=== PATIENT | female | born 1950 | race Caucasian/White ===

== ENCOUNTER 2018-04-21 15:48 | Emergency (ER) | payer MEDICAID, MEDICARE ==
[~2018-04-21] VITALS: Ht 167.6 cm; Wt 87.0 kg
[2018-04-21] MEDS ORDERED: SODIUM CHLORIDE FLUSH 10ML SYR IVF ONE (16:00)
[2018-04-21 16:22] VITALS: BP 97/58
[2018-04-21 16:24] LABS: BASOPHILS # (AUTO) 0.02 x10^3/uL (0-0.1); BASOPHILS % (AUTO) 0 % (0-1); EOSINOPHILS # (AUTO) 0.08 x10^3/uL (0-0.4); EOSINOPHILS % (AUTO) 1 % (1-7); LYMPHOCYTES # (AUTO) 1.08 x10^3/uL (1-3.4); LYMPHOCYTES % (AUTO) 10 % (22-44); MD NO; MEAN CORPUSCULAR HEMOGLOBIN 27.7 pg (27.0-34.8); MEAN CORPUSCULAR HGB CONC 33.5 g/dL (32.4-35.8); MEAN CORPUSCULAR VOLUME 82.7 fL (80-100); MEAN PLATELET VOLUME 8.8 fL (7.4-10.4); MONOCYTES # (AUTO) 0.56 x10^3/uL (0.2-0.8); MONOCYTES % (AUTO) 5 % (2-9); NEUTROPHILS # (AUTO) 9.42 x10^3/uL (1.8-6.8); NEUTROPHILS % (AUTO) 84 % (42-75); PLATELET COUNT 200 x10^3/uL (130-400); RED BLOOD COUNT 4.85 x10^6/uL (3.82-5.3); RED CELL DISTRIBUTION WIDTH 13.5 % (9.6-15.2)
[2018-04-21 16:29] LABS: ALBUMIN 3.3 g/dL (3.4-5.0); ANION GAP 12 mmol/L (5-15); CALCIUM 8.8 mg/dL (8.5-10.1); CHLORIDE 103 mmol/L (98-107); SALICYLATE LEVEL 3.2 mg/dL (2.8-20.0)
[2018-04-21] MEDS ORDERED: PLEASE ENTER HEIGHT AND WEIGHT MC SCH (16:30)
[2018-04-21] MEDS ORDERED: PLEASE ENTER ALLERGIES MC SCH (16:30)
[2018-04-21 16:31] LABS: ALANINE AMINOTRANSFERASE 34 U/L (12-78); ALKALINE PHOSPHATASE 182 U/L (45-117); CREATININE 1.19 mg/dL (0.55-1.02); TOTAL PROTEIN 7.6 g/dL (6.4-8.2)
[2018-04-21 16:41] LABS: ACETAMINOPHEN < 2 mcg/mL (10-30)
[2018-04-21] MEDS ORDERED: NALOXONE 0.4 MG/ML, 1ML ONE (16:48)
[2018-04-21] MEDS ORDERED: NALOXONE 0.4 MG/ML, 1ML IVPush ONE (17:00)
== END 2018-04-21 17:15 | disposition left against medical advice (07) ==
LOC: ED 17:09
DX: R41.82 Altered mental status, unspecified (principal); R53.83 Other fatigue
CPT/HCPCS: 36415; 70450; 71045; 80053; 80307; 80329; 82140; 85025; 93005; 96374; 99285; J2310; G0480

== ENCOUNTER 2020-01-05 19:41 | Inpatient (IN) | payer MEDICARE, OTHER ==
[~2020-01-05] VITALS: Ht 162.6 cm; Wt 70.0 kg
--- NOTE | 2020-01-05 20:13 | NUR ---
SENDY LEWIS AT BEDSIDE EVALUATING PT
[2020-01-05 20:40] LABS: BASOPHILS # (AUTO) 0.02 x10^3/uL (0-0.1); BASOPHILS % (AUTO) 0 % (0-1); EOSINOPHILS % (AUTO) 2 % (1-7); LYMPHOCYTES # (AUTO) 1.13 x10^3/uL (1-3.4); LYMPHOCYTES % (AUTO) 18 % (22-44); MD NO; MEAN CORPUSCULAR HEMOGLOBIN 27.4 pg (27.0-34.8); MEAN CORPUSCULAR HGB CONC 32.5 g/dL (32.4-35.8); MEAN CORPUSCULAR VOLUME 84.3 fL (80-100); MEAN PLATELET VOLUME 9.3 fL (7.4-10.4); MONOCYTES # (AUTO) 0.34 x10^3/uL (0.2-0.8); MONOCYTES % (AUTO) 6 % (2-9); NEUTROPHILS # (AUTO) 4.67 x10^3/uL (1.8-6.8); NEUTROPHILS % (AUTO) 75 % (42-75); PLATELET COUNT 150 x10^3/uL (130-400); RED BLOOD COUNT 4.18 x10^6/uL (3.82-5.3); RED CELL DISTRIBUTION WIDTH 14.1 % (9.6-15.2)
[2020-01-05 20:50] LABS: ALBUMIN 3.3 g/dL (3.4-5.0); ANION GAP 5 mmol/L (5-15); CALCIUM 9.1 mg/dL (8.5-10.1); CHLORIDE 103 mmol/L (98-107); CREATININE 1.21 mg/dL (0.55-1.02)
[2020-01-05 21:28] LABS: HCT (SEDRATE) 35.2 % (34.6-47.8)
[2020-01-05] MEDS ORDERED: CEFAZOLIN PMX 1GM/50ML 50 ML IV ONE (21:30)
[2020-01-05] MEDS ORDERED: SODIUM CHLORIDE FLUSH 10ML SYR IVF ONE (21:30)
[2020-01-05] MEDS ORDERED: CEFAZOLIN 1,000 MG IV ONE (21:30)
[2020-01-05] MEDS ORDERED: CEFAZOLIN PMX 1GM/50ML 50 ML ONE (21:37)
--- NOTE | 2020-01-05 22:04 | NUR ---
DELAY IN IV ABX DUE TO DIFFICULTY OBTAINING IV ACCESS.
--- NOTE | 2020-01-05 22:19 | NUR ---
HOSPTIALIST AT BEDSIDE EVALUATING PT.
[2020-01-05] MEDS ORDERED: VANCOMYCIN PER PHARMACY MC PRN (22:30)
[2020-01-05] MEDS ORDERED: POLYETHYLENE GLYCOL 17 GM PACKET PO PRN (22:30)
[2020-01-05] MEDS ORDERED: SODIUM CHLORIDE FLUSH 10ML SYR IVF PRN (22:30)
[2020-01-05] MEDS ORDERED: ONDANSETRON ODT 4 MG PO PRN (22:30)
[2020-01-05] MEDS ORDERED: BISACODYL 10 MG SUPP PR PRN (22:30)
--- NOTE | 2020-01-05 22:39 | NUR ---
IV ESTABLISHED, IV ABX STARTED.
--- NOTE | 2020-01-05 22:51 | NUR ---
MED REC DONE. PT REPORTS "I TAKE A DIABETES MEDICATION BUT I DON'T KNOW WHAT IT'S CALLED"
--- NOTE | 2020-01-05 22:54 | NUR ---
REPORT TO MAUREEN GARRIDO
[2020-01-05] MEDS ORDERED: PLEASE ENTER WEIGHT MC SCH (23:30)
[2020-01-05] MEDS ORDERED: PHARMACOKINETIC MONITORING MC PRN (23:30)
[2020-01-05] MEDS: NICOTINE 7 MG/24 HR PATCH.TD24 TD SCH (23:44)
[2020-01-05] MEDS: HEPARIN 5,000 UNITS/ML, 1ML SQ SCH (23:44)
[2020-01-05] MEDS: SODIUM CHLORIDE FLUSH 10ML SYR IVF SCH (23:44)
[2020-01-05] MEDS: AMPICILLIN/SULBACTAM 3 GM in SODIUM CHLORIDE 0.9% 100 ML IV SCH (23:44)
[2020-01-06] MEDS ORDERED: VANCOMYCIN 1,500 MG in SODIUM CHLORIDE 0.9% 250 ML IV ONE
[2020-01-06 00:42] VITALS: BP 121/75
[2020-01-06] MEDS: ACETAMINOPHEN 325 MG TABLET PO PRN ×2 (02:58→19:11)
[2020-01-06] MEDS ORDERED: MORP1SYR2 PO (03:05)
[2020-01-06] MEDS ORDERED: MORPHINE SULFATE 4 MG/ML, 1ML ONE (05:06)
[2020-01-06] MEDS ORDERED: MORPHINE SULFATE 4 MG/ML, 1ML IVPush ONE (05:30)
[2020-01-06] MEDS: AMPICILLIN/SULBACTAM 3 GM in SODIUM CHLORIDE 0.9% 100 ML IV SCH ×3 (05:35→17:04)
[2020-01-06 05:57] LABS: ANION GAP 8 mmol/L (5-15); CALCIUM 8.7 mg/dL (8.5-10.1); CHLORIDE 104 mmol/L (98-107)
[2020-01-06 05:58] LABS: CREATININE 1.24 mg/dL (0.55-1.02)
[2020-01-06 06:03] LABS: BASOPHILS # (AUTO) 0.02 x10^3/uL (0-0.1); BASOPHILS % (AUTO) 0 % (0-1); EOSINOPHILS # (AUTO) 0.05 x10^3/uL (0-0.4); EOSINOPHILS % (AUTO) 1 % (1-7); LYMPHOCYTES # (AUTO) 0.85 x10^3/uL (1-3.4); LYMPHOCYTES % (AUTO) 18 % (22-44); MD NO; MEAN CORPUSCULAR HEMOGLOBIN 27.4 pg (27.0-34.8); MEAN CORPUSCULAR HGB CONC 32.4 g/dL (32.4-35.8); MEAN CORPUSCULAR VOLUME 84.6 fL (80-100); MEAN PLATELET VOLUME 9.9 fL (7.4-10.4); MONOCYTES # (AUTO) 0.25 x10^3/uL (0.2-0.8); MONOCYTES % (AUTO) 5 % (2-9); NEUTROPHILS % (AUTO) 75 % (42-75); PLATELET COUNT 149 x10^3/uL (130-400); RED BLOOD COUNT 4.17 x10^6/uL (3.82-5.3); RED CELL DISTRIBUTION WIDTH 13.9 % (9.6-15.2)
[2020-01-06 06:50] VITALS: BP 95/64
[2020-01-06] MEDS: HEPARIN 5,000 UNITS/ML, 1ML SQ SCH ×2 (08:14→16:12)
[2020-01-06] MEDS: SENNA/DOCUSATE TABLET PO SCH (08:14)
[2020-01-06] MEDS: SODIUM CHLORIDE FLUSH 10ML SYR IVF SCH ×2 (08:15→21:00)
[2020-01-06] MEDS ORDERED: GADOTERATE 7.5 MMOL/15 ML SYR ONE (09:03)
[2020-01-06] MEDS ORDERED: MORPHINE 30 MG PO (11:16)
[2020-01-06 12:58] LABS: AMPHETAMINE SCREEN, URINE Negative (Negative); BARBITURATE SCREEN, URINE Negative (Negative); BENZODIAZEPINE SCREEN, URINE Negative (Negative); CANNABINOID SCREEN, URINE Negative (Negative); COCAINE SCREEN, URINE Negative (Negative); METHADONE SCREEN, URINE Negative (Negative); OPIATE SCREEN, URINE Positive (Negative)
[2020-01-06 15:04] VITALS: BP 166/92
[2020-01-06] MEDS: OXYcodone IR 5MG TABLET PO PRN (15:17)
[2020-01-06 20:06] VITALS: BP 97/55
[2020-01-06] MEDS: NICOTINE 7 MG/24 HR PATCH.TD24 TD SCH (21:15)
[2020-01-07] MEDS ORDERED: VANCOMYCIN PMX 1GM/200ML 200 ML IVPB SCH
[2020-01-07] MEDS: AMPICILLIN/SULBACTAM 3 GM in SODIUM CHLORIDE 0.9% 100 ML IV SCH ×4 (00:08→23:04)
[2020-01-07] MEDS: OXYcodone IR 5MG TABLET PO PRN ×3 (01:30→17:19)
[2020-01-07 02:03] VITALS: BP 109/70
[2020-01-07 05:41] LABS: BASOPHILS # (AUTO) 0.02 x10^3/uL (0-0.1); BASOPHILS % (AUTO) 0 % (0-1); EOSINOPHILS # (AUTO) 0.07 x10^3/uL (0-0.4); EOSINOPHILS % (AUTO) 1 % (1-7); LYMPHOCYTES # (AUTO) 1.75 x10^3/uL (1-3.4); LYMPHOCYTES % (AUTO) 34 % (22-44); MD NO; MEAN CORPUSCULAR HEMOGLOBIN 27.5 pg (27.0-34.8); MEAN CORPUSCULAR HGB CONC 32.5 g/dL (32.4-35.8); MEAN CORPUSCULAR VOLUME 84.4 fL (80-100); MEAN PLATELET VOLUME 9.7 fL (7.4-10.4); MONOCYTES % (AUTO) 8 % (2-9); NEUTROPHILS % (AUTO) 56 % (42-75); PLATELET COUNT 167 x10^3/uL (130-400); RED BLOOD COUNT 4.28 x10^6/uL (3.82-5.3); RED CELL DISTRIBUTION WIDTH 14.3 % (9.6-15.2)
[2020-01-07 05:58] LABS: CHLORIDE 108 mmol/L (98-107)
[2020-01-07 06:03] LABS: ANION GAP 6 mmol/L (5-15); CALCIUM 8.8 mg/dL (8.5-10.1); CREATININE 0.96 mg/dL (0.55-1.02)
[2020-01-07 07:53] VITALS: BP 117/76
[2020-01-07] MEDS: HEPARIN 5,000 UNITS/ML, 1ML SQ SCH ×4 (07:56→23:04)
[2020-01-07] MEDS: SENNA/DOCUSATE TABLET PO SCH (08:03)
[2020-01-07] MEDS: SODIUM CHLORIDE FLUSH 10ML SYR IVF SCH ×2 (08:03→20:54)
[2020-01-07] MEDS ORDERED: CHLORHEXIDINE 15 ML UDC MM STA (13:12)
[2020-01-07] MEDS ORDERED: VANCOMYCIN 500 MG ONE (14:07)
[2020-01-07] MEDS ORDERED: BUPIVACAINE/PF 0.25% ONE (14:07)
[2020-01-07] MEDS ORDERED: LIDOCAINE 1%, 20ML ONE (14:07)
[2020-01-07] MEDS ORDERED: FENTANYL PF 250 MCG/5ML ONE (14:25)
[2020-01-07] MEDS ORDERED: HYDROmorphone 2 MG/ML, 1ML IVPush PRN (14:30)
[2020-01-07] MEDS ORDERED: OXYcodone 5 MG/5 ML ORAL.SOL UDC PO PRN (14:30)
[2020-01-07] MEDS ORDERED: LABETALOL 5MG/ML, 20ML IV PRN (14:30)
[2020-01-07] MEDS ORDERED: FENTANYL PF 100 MCG/2ML IV PRN (14:30)
[2020-01-07] MEDS ORDERED: HALOPERIDOL 5 MG/ML IV PRN (14:30)
[2020-01-07] MEDS ORDERED: PROMETHAZINE 25 MG/ML, 1ML IV PRN (14:30)
[2020-01-07] MEDS ORDERED: MEPERIDINE/PF 25MG/ML,1ML IVPush PRN (14:30)
[2020-01-07] MEDS ORDERED: hydrALAzine 20 MG/ML, 1ML IV PRN (14:30)
[2020-01-07] MEDS ORDERED: ROCURONIUM 10MG/ML,5ML ONE (15:10)
[2020-01-07] MEDS ORDERED: NEOSTIGMINE 1 MG/ML, 10ML ONE (15:10)
[2020-01-07] MEDS ORDERED: ONDANSETRON 2MG/ML, 2ML ONE (15:10)
[2020-01-07] MEDS ORDERED: GLYCOPYRROLATE 0.2MG/1ML, 5ML ONE (15:10)
[2020-01-07] MEDS ORDERED: DEXAMETHASONE 4 MG/ML, 1ML ONE (15:10)
[2020-01-07] MEDS ORDERED: CEFAZOLIN 1,000 MG ONE (15:10)
[2020-01-07] MEDS ORDERED: SUCCINYLCHOLINE 20 MG/ML, 10ML ONE (15:10)
[2020-01-07] MEDS ORDERED: PROPOFOL 10 MG/ML, 20ML ONE (15:10)
[2020-01-07] MEDS ORDERED: HYDROmorphone 1 MG/ML, 1ML INJ ONE (15:34)
[2020-01-07] MEDS ORDERED: FENTANYL PF 100 MCG/2ML ONE (15:34)
[2020-01-07 18:34] VITALS: BP 105/67
[2020-01-07] MEDS: VANCOMYCIN PMX 1GM/200ML 200 ML IVPB SCH (20:54)
[2020-01-07] MEDS: NICOTINE 7 MG/24 HR PATCH.TD24 TD SCH (20:55)
[2020-01-08] VITALS: BP 119/78
[2020-01-08] MEDS: ACETAMINOPHEN 325 MG TABLET PO PRN ×3 (01:33→15:00)
[2020-01-08] MEDS: OXYcodone IR 5MG TABLET PO PRN ×4 (01:34→23:00)
[2020-01-08 03:52] VITALS: BP 125/77
[2020-01-08] MEDS: AMPICILLIN/SULBACTAM 3 GM in SODIUM CHLORIDE 0.9% 100 ML IV SCH ×4 (04:54→22:33)
[2020-01-08 05:14] LABS: BASOPHILS # (AUTO) 0.02 x10^3/uL (0-0.1); BASOPHILS % (AUTO) 0 % (0-1); EOSINOPHILS % (AUTO) 0 % (1-7); LYMPHOCYTES # (AUTO) 0.79 x10^3/uL (1-3.4); LYMPHOCYTES % (AUTO) 11 % (22-44); MD NO; MEAN CORPUSCULAR HEMOGLOBIN 27.6 pg (27.0-34.8); MEAN CORPUSCULAR HGB CONC 32.8 g/dL (32.4-35.8); MEAN CORPUSCULAR VOLUME 84.2 fL (80-100); MEAN PLATELET VOLUME 9.6 fL (7.4-10.4); MONOCYTES % (AUTO) 4 % (2-9); NEUTROPHILS # (AUTO) 6.02 x10^3/uL (1.8-6.8); NEUTROPHILS % (AUTO) 84 % (42-75); PLATELET COUNT 155 x10^3/uL (130-400); RED BLOOD COUNT 3.85 x10^6/uL (3.82-5.3); RED CELL DISTRIBUTION WIDTH 14.1 % (9.6-15.2)
[2020-01-08 05:17] LABS: ANION GAP 4 mmol/L (5-15); CALCIUM 8.4 mg/dL (8.5-10.1); CHLORIDE 106 mmol/L (98-107)
[2020-01-08 05:18] LABS: CREATININE 0.87 mg/dL (0.55-1.02)
[2020-01-08] MEDS: HEPARIN 5,000 UNITS/ML, 1ML SQ SCH ×3 (07:38→23:56)
[2020-01-08 08:00] VITALS: BP 113/69
[2020-01-08] MEDS: SENNA/DOCUSATE TABLET PO SCH (10:00)
[2020-01-08] MEDS: SODIUM CHLORIDE FLUSH 10ML SYR IVF SCH ×2 (10:00→20:44)
[2020-01-08 13:06] VITALS: BP 112/56
[2020-01-08] MEDS: VANCOMYCIN PMX 1GM/200ML 200 ML IVPB SCH (15:00)
[2020-01-08 19:45] VITALS: BP 101/64
[2020-01-08] MEDS: NICOTINE 7 MG/24 HR PATCH.TD24 TD SCH (22:30)
[2020-01-09 02:19] VITALS: BP 89/57
[2020-01-09] MEDS: AMPICILLIN/SULBACTAM 3 GM in SODIUM CHLORIDE 0.9% 100 ML IV SCH ×2 (04:24→10:48)
[2020-01-09 04:44] LABS: BASOPHILS # (AUTO) 0.03 x10^3/uL (0-0.1); BASOPHILS % (AUTO) 1 % (0-1); EOSINOPHILS # (AUTO) 0.14 x10^3/uL (0-0.4); EOSINOPHILS % (AUTO) 3 % (1-7); LYMPHOCYTES % (AUTO) 44 % (22-44); MD NO; MEAN CORPUSCULAR HEMOGLOBIN 27.8 pg (27.0-34.8); MEAN CORPUSCULAR HGB CONC 32.6 g/dL (32.4-35.8); MEAN CORPUSCULAR VOLUME 85.1 fL (80-100); MEAN PLATELET VOLUME 9.2 fL (7.4-10.4); MONOCYTES # (AUTO) 0.32 x10^3/uL (0.2-0.8); MONOCYTES % (AUTO) 6 % (2-9); NEUTROPHILS # (AUTO) 2.32 x10^3/uL (1.8-6.8); NEUTROPHILS % (AUTO) 46 % (42-75); PLATELET COUNT 158 x10^3/uL (130-400); RED BLOOD COUNT 3.79 x10^6/uL (3.82-5.3); RED CELL DISTRIBUTION WIDTH 14.1 % (9.6-15.2)
[2020-01-09 04:50] LABS: ANION GAP 3 mmol/L (5-15); CALCIUM 8.3 mg/dL (8.5-10.1); CHLORIDE 108 mmol/L (98-107)
[2020-01-09 04:53] LABS: CREATININE 0.96 mg/dL (0.55-1.02)
[2020-01-09 07:06] VITALS: BP 99/65
[2020-01-09] MEDS: SENNA/DOCUSATE TABLET PO SCH (08:23)
[2020-01-09] MEDS: HEPARIN 5,000 UNITS/ML, 1ML SQ SCH ×2 (08:24→17:13)
[2020-01-09] MEDS: SODIUM CHLORIDE FLUSH 10ML SYR IVF SCH ×2 (08:24→21:27)
[2020-01-09] MEDS ORDERED: VANCOMYCIN 900 MG in SODIUM CHLORIDE 0.9% 100 ML IV SCH (09:00)
[2020-01-09] MEDS: OXYcodone IR 5MG TABLET PO PRN ×3 (10:48→23:23)
[2020-01-09] MEDS: ACETAMINOPHEN 325 MG TABLET PO PRN ×3 (10:48→23:24)
[2020-01-09] MEDS ORDERED: AMIT150T PO (13:08)
[2020-01-09] MEDS ORDERED: ATOR10TA9 PO (13:08)
[2020-01-09] MEDS ORDERED: METF500S5 PO (13:08)
[2020-01-09 13:13] VITALS: BP 106/54
[2020-01-09] MEDS: CEFTRIAXONE PMX 1GM/50ML 50 ML IV SCH (17:13)
[2020-01-09 18:52] VITALS: BP 100/63
[2020-01-09] MEDS: INSULIN LISPRO 100 UNITS/ML, PEN SQ-INSULIN SCH (21:24)
[2020-01-09] MEDS: NICOTINE 7 MG/24 HR PATCH.TD24 TD SCH (21:26)
[2020-01-09] MEDS: AMITRIPTYLINE 75 MG TABLET PO SCH (21:26)
[2020-01-10] MEDS: HEPARIN 5,000 UNITS/ML, 1ML SQ SCH ×3 (00:53→16:38)
[2020-01-10 02:14] VITALS: BP 131/80
[2020-01-10] MEDS: OXYcodone IR 5MG TABLET PO PRN ×3 (06:03→18:01)
[2020-01-10] MEDS: INSULIN LISPRO 100 UNITS/ML, PEN SQ-INSULIN SCH ×4 (07:00→20:18)
[2020-01-10] MEDS: ATORVASTATIN 10 MG TABLET PO SCH (07:55)
[2020-01-10] MEDS: SENNA/DOCUSATE TABLET PO SCH (07:55)
[2020-01-10] MEDS: SODIUM CHLORIDE FLUSH 10ML SYR IVF SCH ×2 (07:55→20:20)
[2020-01-10 08:00] VITALS: BP 135/76
[2020-01-10 12:31] VITALS: BP 131/80
[2020-01-10] MEDS: CEFTRIAXONE PMX 1GM/50ML 50 ML IV SCH (16:38)
[2020-01-10] MEDS: ACETAMINOPHEN 325 MG TABLET PO PRN ×2 (18:01→22:11)
[2020-01-10 18:42] VITALS: BP 138/85
[2020-01-10] MEDS: AMITRIPTYLINE 75 MG TABLET PO SCH (20:19)
[2020-01-10] MEDS: NICOTINE 7 MG/24 HR PATCH.TD24 TD SCH (22:30)
[2020-01-11] MEDS: HEPARIN 5,000 UNITS/ML, 1ML SQ SCH ×3 (00:04→17:38)
[2020-01-11] MEDS: OXYcodone IR 5MG TABLET PO PRN ×3 (00:05→19:36)
[2020-01-11 00:29] VITALS: BP 143/81
[2020-01-11] MEDS: ACETAMINOPHEN 325 MG TABLET PO PRN ×3 (03:20→19:36)
[2020-01-11 06:33] VITALS: BP 138/77
[2020-01-11] MEDS: INSULIN LISPRO 100 UNITS/ML, PEN SQ-INSULIN SCH ×4 (07:00→21:00)
[2020-01-11] MEDS: SENNA/DOCUSATE TABLET PO SCH (08:50)
[2020-01-11] MEDS: ATORVASTATIN 10 MG TABLET PO SCH (08:50)
[2020-01-11] MEDS: SODIUM CHLORIDE FLUSH 10ML SYR IVF SCH ×2 (08:50→21:28)
[2020-01-11 12:35] VITALS: BP 137/75
[2020-01-11] MEDS: CEFTRIAXONE PMX 1GM/50ML 50 ML IV SCH (17:38)
[2020-01-11 20:18] VITALS: BP 117/60
[2020-01-11] MEDS: AMITRIPTYLINE 75 MG TABLET PO SCH (21:28)
[2020-01-11] MEDS: NICOTINE 7 MG/24 HR PATCH.TD24 TD SCH (22:30)
[2020-01-12] MEDS: HEPARIN 5,000 UNITS/ML, 1ML SQ SCH ×3 (01:26→17:38)
[2020-01-12 01:49] VITALS: BP 137/79
[2020-01-12 04:48] LABS: ANION GAP 6 mmol/L (5-15); CALCIUM 9.7 mg/dL (8.5-10.1); CHLORIDE 108 mmol/L (98-107); CREATININE 1.03 mg/dL (0.55-1.02)
[2020-01-12 04:55] LABS: BASOPHILS # (AUTO) 0.03 x10^3/uL (0-0.1); BASOPHILS % (AUTO) 0 % (0-1); EOSINOPHILS # (AUTO) 0.12 x10^3/uL (0-0.4); EOSINOPHILS % (AUTO) 2 % (1-7); LYMPHOCYTES # (AUTO) 2.02 x10^3/uL (1-3.4); LYMPHOCYTES % (AUTO) 33 % (22-44); MD NO; MEAN CORPUSCULAR HEMOGLOBIN 27.6 pg (27.0-34.8); MEAN CORPUSCULAR HGB CONC 32.4 g/dL (32.4-35.8); MEAN CORPUSCULAR VOLUME 85.3 fL (80-100); MONOCYTES % (AUTO) 3 % (2-9); NEUTROPHILS # (AUTO) 3.85 x10^3/uL (1.8-6.8); NEUTROPHILS % (AUTO) 62 % (42-75); PLATELET COUNT 214 x10^3/uL (130-400); RED BLOOD COUNT 4.77 x10^6/uL (3.82-5.3); RED CELL DISTRIBUTION WIDTH 14.3 % (9.6-15.2)
[2020-01-12] MEDS: INSULIN LISPRO 100 UNITS/ML, PEN SQ-INSULIN SCH ×4 (07:00→21:00)
[2020-01-12 07:27] VITALS: BP 126/80
[2020-01-12] MEDS: SENNA/DOCUSATE TABLET PO SCH (09:00)
[2020-01-12] MEDS: ATORVASTATIN 10 MG TABLET PO SCH (09:26)
[2020-01-12] MEDS: SODIUM CHLORIDE FLUSH 10ML SYR IVF SCH ×2 (09:26→21:45)
[2020-01-12] MEDS ORDERED: POLY17PO5 PO (10:08)
[2020-01-12] MEDS ORDERED: DOCU-131 PO (10:08)
[2020-01-12 13:32] VITALS: BP 118/61
[2020-01-12] MEDS: OXYcodone IR 5MG TABLET PO PRN ×2 (14:34→22:01)
[2020-01-12] MEDS: CEFTRIAXONE PMX 1GM/50ML 50 ML IV SCH (17:51)
[2020-01-12 19:16] VITALS: BP 98/64
[2020-01-12] MEDS: AMITRIPTYLINE 75 MG TABLET PO SCH (21:44)
[2020-01-12] MEDS: NICOTINE 7 MG/24 HR PATCH.TD24 TD SCH (21:45)
[2020-01-13] MEDS: HEPARIN 5,000 UNITS/ML, 1ML SQ SCH ×2 (00:48→09:08)
[2020-01-13] MEDS: ACETAMINOPHEN 325 MG TABLET PO PRN ×2 (00:48→10:26)
[2020-01-13 02:08] VITALS: BP 106/70
[2020-01-13] MEDS: OXYcodone IR 5MG TABLET PO PRN ×2 (05:28→11:26)
[2020-01-13] MEDS: INSULIN LISPRO 100 UNITS/ML, PEN SQ-INSULIN SCH ×2 (07:00→11:00)
[2020-01-13 07:11] VITALS: BP 119/68
[2020-01-13] MEDS: SENNA/DOCUSATE TABLET PO SCH (09:00)
[2020-01-13] MEDS: ATORVASTATIN 10 MG TABLET PO SCH (09:08)
[2020-01-13] MEDS: SODIUM CHLORIDE FLUSH 10ML SYR IVF SCH (09:08)
[2020-01-13 12:30] VITALS: BP 120/68
== END 2020-01-13 13:11 | disposition home or self-care (01) | DRG 503 ==
LOC: ED 20:00 → EDIP 22:29 → 4NE 23:15
PROVIDERS: ADMIT Internal Medicine; ATTEND Internal Medicine
PROC: 0HBRXZZ Excision of Toe Nail, External Approach (ICD-10-PCS; 2020-01-07)
PROC: 0Y6Q0Z0 Detachment at Left 1st Toe, Complete, Open Approach (ICD-10-PCS; principal; 2020-01-07 13:45)
DX: S92.422B Displaced fracture of distal phalanx of left great toe, initial encounter for open fracture (principal); N17.0 Acute kidney failure with tubular necrosis; E87.1 Hypo-osmolality and hyponatremia; F11.20 Opioid dependence, uncomplicated; M86.9 Osteomyelitis, unspecified; L03.032 Cellulitis of left toe; L03.031 Cellulitis of right toe; E11.69 Type 2 diabetes mellitus with other specified complication; G89.29 Other chronic pain; F17.210 Nicotine dependence, cigarettes, uncomplicated; Y92.89 Other specified places as the place of occurrence of the external cause; Y99.8 Other external cause status; Z86.73 Personal history of transient ischemic attack (TIA), and cerebral infarction without residual deficits; Z90.710 Acquired absence of both cervix and uterus; W22.8XXA Striking against or struck by other objects, initial encounter; Z79.84 Long term (current) use of oral hypoglycemic drugs
CPT/HCPCS: 36415; 80048; 80202; 80307; 82040; 82962; 83036; 85025; 85651; 86140; 87070; 87075; 87077; 87147; 87186; 87205; 93005; 96374; G0378; J0295; J0690; J0696; J1100; J1644; J2405; J2704; J2710; J3010; J3370; J3490; A9575; J0330; J2270; J7050